=== PATIENT | male | born 1980 | race Caucasian/White ===

== ENCOUNTER 2017-04-17 20:53 | Emergency (ER) | payer BC ==
--- NOTE | ~2017-04-17 | CT2 ---
[facility] A Service of [facility] RADIOLOGY TEXT RESULTS PATIENT: EULA GALLAGHER LOCATION: [place] : [birth year] UNIT #: [id number] AGE: [address]: Hudson Altamirano MD SEX: M ORDER DR: [id number] [facility] [address] [place], [place] [address] [id number] E MR#: [id number] Acc #: [id number] NAME: EULA GALLAGHER : 1980 SEX: M STUDY DATE/TIME: 04/17/2017 23:47 UNIT: [place] ROOM: STUDY DESCRIPTION: CT Abd and Pelv W Cont Attending Physician: Leonard Altamirano M.D. Ordering Physician: Ed Micheal Prescott M.D. Primary Care Physician: Primary Care Physician No MEDICAL IMAGING REPORT This report is preliminary unless electronic signature is present EXAM Abdomen and pelvis CT, 04/17 at 23:47 INDICATIONS Abdominal pain and nausea after eating pizza 2 hours ago. Pain rates 10 out of 10. TECHNIQUE Axial images were obtained through the abdomen and pelvis following oral and IV contrast administration. Multiplanar reformats were obtained. No comparison. This CT exam was performed with one or more of the following radiation dose reduction techniques: Automatic exposure control, adjustment of mA and/or kV according to patient size, and iterative reconstruction. FINDINGS ABDOMEN: Lung bases are clear. Gallbladder unremarkable. No biliary obstruction. There is mild left hydronephrosis secondary to a 4-mm stone at the left ureterovesical junction. Solid organs are otherwise normal. The GI tract is normal. No adenopathy or free fluid is seen. PELVIS: Urinary bladder is otherwise unremarkable. The appendix is normal, as is the remainder of the GI tract. IMPRESSION 1. Mild left hydronephrosis secondary to a 4-mm stone at the left ureterovesical junction. 2. Normal GI tract, including the appendix. 3. Otherwise, normal. Dictated by... Jesus Rees Jr., M.D. [facility] A Service of [facility] RADIOLOGY TEXT RESULTS PATIENT: EULA GALLAGHER LOCATION: [facility] : [birth year] UNIT #: [id number] AGE: [address]: Hudson Altamirano MD SEX: M ORDER DR: THIS IS AN ELECTRONICALLY VERIFIED REPORT Jesus Rees Jr., M.D. at 04/18/2017 6:54 AM DEMETRIA/nimco TD: 04/18/2017 01:28 JOB #: [id number] MEDICAL IMAGING REPORT Page 1 of 1 COPY
[~2017-04-17 20:53] MED LIST: ALBUTEROL HFA INH; NAPROXEN PO; NO MEDICATIONS; PREDNISONE PO; ROBAXIN500 MG PO; ZITHROMAX PO
[2017-04-17 22:01] LABS: BASOPHIL% 0.4 % (0-2.5); EOSINOPHIL# 0.1 X10e3 (0-0.7); EOSINOPHIL% 1.6 % (0.0-7.0); HEMATOCRIT 47.5 % (38.0-50.0); HEMOGLOBIN 15.4 gm/dL (13.0-16.0); LYMPHOCYTE# 2.1 X10e3 (1.0-3.5); LYMPHOCYTE% 22.2 % (17.0-45.0); MEAN CELL VOLUME 88.5 FL (83-96); MEAN CORPUSCULAR HEMOGLOBIN 28.8 PG (28-34); MEAN CORPUSCULAR HGB CONC 32.5 g/dL (30-36); MEAN PLATELET VOLUME 8.4 FL (6.5-11.5); MONOCYTE# 0.5 X10e3 (0-1.0); MONOCYTE% 5.2 % (3.0-12.0); NEUTROPHIL# 6.7 X10e3 (1.5-7.1); NEUTROPHIL% 70.6 % (40-75); PLATELET COUNT 297 X10e3 (140-420); RED BLOOD COUNT 5.36 X10e (3.90-5.60); RED CELL DISTRIBUTION WIDTH 13.9 % (11.0-15.5); WHITE BLOOD COUNT 9.4 X10e3 (4.0-10.5)
[2017-04-17 22:04] LABS: DIFF IND NO
[2017-04-17 22:27] LABS: ALBUMIN SERUM 4.3 g/dL (3.5-5.0); BILIRUBIN, DIRECT 0.1 mg/dL (0.0-0.2); BILIRUBIN,INDIRECT 0.9 mg/dL (0.0-0.9); CALCIUM SERUM 9.4 mg/dL (8.4-10.2); CREATININE SERUM 1.2 mg/dL (0.6-1.4); GLOM FILT RATE Estimated 76.3 mL/min (>60); POTASSIUM 4.1 mmol/L (3.5-5.1); PROTEIN TOTAL SERUM 7.7 g/dL (6.0-8.3)
[2017-04-18 02:04] LABS: URINE SOURCE CLEAN CATCH
[2017-04-18 02:11] LABS: URINE APPEARANCE CLEAR; URINE BILIRUBIN NEG (NEG); URINE BLOOD 2+ (NEG); URINE COLOR YELLOW; URINE GLUCOSE NEG (NEG); URINE KETONE NEG (NEG); URINE LEUKOCYTE ESTERASE NEG (NEG); URINE NITRATE NEG (NEG); URINE PH 6.5 (5-8); URINE PROTEIN NEG (NEG); URINE SPECIFIC GRAVITY 1.029 (1.003-1.035); URINE UROBILINOGEN 0.2 MG/DL (NEG)
[2017-04-18 02:14] LABS: URINE BACTERIA AUWI NEG (NEGATIVE); URINE SQUAMOUS EPITHELIAL CELL NONE SEEN /[HPF]; UWBCS1 AUWI 0-2 (0-5)
[2017-04-18 02:15] LABS: CULTURE INDICATED? NO
== END 2017-04-18 02:59 | disposition home or self-care (01) ==
LOC: CED 20:53
PROVIDERS: Emergency Medicine
DX: N13.2 Hydronephrosis with renal and ureteral calculous obstruction (principal); F32.9 Major depressive disorder, single episode, unspecified; F17.210 Nicotine dependence, cigarettes, uncomplicated
CPT/HCPCS: 36415; 74177; 80048; 80076; 81003; 82150; 83690; 85025; 96374; 96375; 99284; J1885; J2270; J2405; Q9967

== ENCOUNTER 2017-05-18 22:11 | Emergency (ER) | payer OTHER, BC ==
[~2017-05-18] VITALS: Ht 177.8 cm; Wt 120.4 kg
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
== END 2017-05-19 01:35 | disposition home or self-care (01) ==
LOC: CED 22:11
DX: S09.90XA Unspecified injury of head, initial encounter (principal); S16.1XXA Strain of muscle, fascia and tendon at neck level, initial encounter; Z88.6 Allergy status to analgesic agent; F17.200 Nicotine dependence, unspecified, uncomplicated; V49.40XA Driver injured in collision with unspecified motor vehicles in traffic accident, initial encounter; Y93.89 Activity, other specified; Y92.410 Unspecified street and highway as the place of occurrence of the external cause
CPT/HCPCS: 70450; 72040; 73030; 99284